=== PATIENT | female | born 1960 | race Caucasian/White ===

== ENCOUNTER 2016-12-17 14:36 | Observation (INO) | payer BC ==
[2016-12-17] MEDS ORDERED: NALOXONE HCL 1 MG/1 ML SYRG ONE (14:46)
[2016-12-17 14:49] LABS: Hematocrit 40.5 % (37.0-47.0); Hemoglobin 13.5 gm/dL (12.5-16.0); Mean Cell Volume 84.6 fl (78-100); Mean Corpuscular Hemoglobin 28.2 pg (27-31); Mean Corpuscular Hgb Conc 33.3 g/dl (32-36); Mean Platelet Volume 11.1 fl (6.0-9.5); Neutrophil # 7.1 K/mm3 (1.3-6.0); Neutrophil % 66.9 % (42-75.0); Platelet Count 290 K/mm3 (150-450); Red Blood Count 4.79 M/mm3 (4.2-5.4); Red Cell Distribution Width 12.4 % (11.5-14.0); White Blood Count 10.6 K/mm3 (4.0-10.5)
[2016-12-17] MEDS ORDERED: NALOXONE HCL 1 MG/1 ML SYRG IV ONE (14:49)
[2016-12-17 15:00] LABS: Cocaine Ur Negative (NEGATIVE); Urine Barbiturate Negative (NEGATIVE); Urine Benzodiazepines Negative (NEGATIVE); Urine Opiates Negative (NEGATIVE); Urine PCP Negative (NEGATIVE)
[2016-12-17 15:05] LABS: Urine Appearance Clear; Urine Bilirubin Negative (NEGATIVE); Urine Color Yellow; Urine Ketone 5 mg/dL (NEGATIVE)
[2016-12-17 15:06] LABS: Urine Blood 10 /ul (NEGATIVE); Urine Nitrite Negative (NEGATIVE); Urine Protein 100 mg/dL (NEGATIVE); Urine RBC 0-5 /hpf (0-5); Urine Urobilinogen Normal (NORMAL); Urine WBC 0-5 /hpf (0-5); Urine pH 8.5 pH (5.0-7.0)
[2016-12-17 15:06] LABS: ALT 20 U/L (19-67); AST 17 U/L (0-48); Albumin * 4.1 gm/dl (3.4-5.0); Alkaline Phosphatase * 84 U/L (50-170); BUN/Creatinine Ratio 17.4 (9.0-21.6); Bilirubin, Total 0.5 mg/dL (0.0-1.1); Blood Urea Nitrogen 15 mg/dL (3-23); Ca. Corrected For Albumin 9.6 mg/dL (8.4-10.2); Carbon Dioxide 28.9 mmol/L (24-32.6); Chloride 102 mmol/L (97-106); Glucose * 140 mg/dL (70-110); Potassium 2.9 mmol/L (3.4-4.6); Sodium 142 mmol/L (132-142); Total Protein 7.7 gm/dL (6.2-8.2); Troponin I Less than 0.017 ng/ml (0.00-0.10)
[2016-12-17 15:07] LABS: Urine Bacteria None Seen
--- NOTE | 2016-12-17 15:12 | ERNOTE ---
Neuro HPI ER Record Presenting Symptoms: other Time Seen by Provider: 12/17/16 14:36 Source: patient, family Exam Limitations: no limitations Allergies/Adverse Reactions: Allergies Allergy/AdvReac Type Severity Reaction Status Date / Time Penicillins Allergy Intermediate Swelling Unverified 03/30/14 16:32 (Other) Tetracyclines Allergy Intermediate Swelling Unverified 03/30/14 16:32 (Other) Home Medications: HOME MEDICATIONS Levothyroxine Sodium [Synthroid] 75 mcg PO DAILY 03/30/14 [Last Taken Unknown] Naproxen Sodium [Aleve] 220 mg PO DAILY PRN 03/30/14 [Last Taken Unknown] Albuterol Sulfate [Proair Hfa] 1 - 2 puff IH Q4H PRN 12/17/16 [Last Taken Unknown] Loratadine [Claritin] 10 mg PO DAILY 12/17/16 [Last Taken Unknown] diphenhydrAMINE HCL [Benadryl] 25 mg PO Q6H PRN 12/17/16 [Last Taken Unknown] - History of Present Illness Narrative: Patient is brought in by her daughter as she is not acting right. She talked to the patient around 10:00 and patient seemed to be normal at that time. Patients called the daughter around 12:00 as the patient was very dizzy, nauseated and generalized weak. The daughter got there around 13:00, was able to get the patient in her car. On the way to the hospital the patient vomited once, complained about dizziness and then became limp, but not unresponsive. Patient offered vry little assistance on transferring her from the car to the wheelchair to a bed. States 'I don't feel good' but cannot specify what bothers her. When asked about past history states that she has knee pain, took some medication that she got from her dentist three months ago. Date (Duration): 12/17/16 Time (Timing): 12:00 Review of Systems - Narrative Narrative: limited by patient condition - Review of Systems Constitutional: Absent: recent illness Respiratory: Absent: shortness of breath Gastrointestinal/Abdominal: Present: nausea. Absent: abdominal pain Neurological: Present: dizziness/light-headedness - Patient's Past Medical History Patient History - Medical: Arthritis, Hypothyroidism, Obesity Patient History - Cardiac/Respiratory: No pertinent hx Patient History - Cancer: No Hx of Cancer Patient History - Surgical Procedures: Back Surgery, Hysterectomy LMP (females 10-50): Menopausal - Social History Living Situations: home Physical Exam - Physical Exam General Appearance: Present: wd/wn, no apparent distress, anxious, obese, other - patient staring, answers some questions appropiately, follows some commands with very little effort Eye Exam: Normal inspection: bilateral, PERRL: bilateral, EOMI: bilateral Ears, Nose, Throat: Present: normal ENT inspection, normal pharynx Neck: Present: nontender Respiratory: Present: no respiratory distress, normal breath sounds, no accessory muscle use, lungs clear Cardiovascular/Chest: Present: regular rate, rhythm, no murmur Gastrointestinal/Abdominal: Present: nontender, nondistended, soft Neurological Exam: Present: other - patient knows name, can't say birthdate, knows location, states [place] Coma Scale - Assess Eye Opening: To Voice Motor: Obeys Commands Verbal: Confused - Total Coma Scale Total: 13 ED Progress - Results and Orders Patient's Lab Results:: I have reviewed the patient's lab results. - Vital Signs Patient's Vital Signs:: I have reviewed the patient's vital signs. - CT/Ultrasound CT/Ultrasound Narrative: CT head: no acute changes - Progress/Reassessment Progress Note-Subjective: 12/17/16 15:09 no change with narcan 12/17/16 16:01 patient more alert, feels nauseated when holding still, dizziness with minimal head movement or elevation patient alert and cooperative now, following all commands, explosive ordnance specialist equal, no drift with hands or legs, finger-nose normal, discussed results with patient and family, denies any use of THC, a couple of weeks ago was at a alliance party 'and someone might have smoked something' 12/17/16 16:22 nausea better after zofran, still very dizzy 12/17/16 17:17 patient comfortable at rest, but with minimal elevation of head dizziness recurs , per patient and family patient had nausea dizziness after one of her surgeries ( neck or back) symptoms were relieved with oxygen and benadryl, patient O2 sats ate 99-100% on RA, will try benadryl, patient insists on having minimal head elevation reversed patient admitted using THC on a daily basis to nursing staff 12/17/16 18:40 patient feeling better at rest (no nausea, tolerated po), but still gets dizzy with sitting her up more 12/17/16 19:46 patient feeling better at rest, able to sit up in bed but when trying to sit on side of bed is getting severely dizzy and nauseated again. symptoms do not resolved till patients sits back in bed 12/17/16 19:46 discussed with Ekaterina Velez, natalioay to admit for observation and order MRI in the am Departure Clinical Impression: Vertigo - Departure Disposition: [facility] Condition: Good
[2016-12-17 15:13] LABS: Urine THC Positive (NEGATIVE)
[2016-12-17] MEDS ORDERED: POTASSIUM CHLORIDE 100 ML IV ONE (15:15)
[2016-12-17] MEDS ORDERED: NORMAL SALINE 1,000 ML IV ONE (15:15)
[2016-12-17 15:16] LABS: Cocaine Ur Negative (NEGATIVE); Urine Barbiturate Negative (NEGATIVE); Urine Benzodiazepines Negative (NEGATIVE); Urine Opiates Negative (NEGATIVE); Urine PCP Negative (NEGATIVE); Urine THC Positive (NEGATIVE)
[2016-12-17] MEDS ORDERED: ONDANSETRON HCL/PF 2 MG/ML VIAL IV ONE (16:00)
[2016-12-17] MEDS ORDERED: ONDANSETRON HCL/PF 2 MG/ML VIAL ONE (16:03)
[2016-12-17] MEDS ORDERED: LORazepam 2 MG/ML DISP.SYRIN IV ONE (16:22)
[2016-12-17] MEDS ORDERED: LORazepam 2 MG/ML DISP.SYRIN ONE (16:25)
[2016-12-17] MEDS ORDERED: diphenhydrAMINE HCL 50 MG/ML VIAL IV ONE (17:16)
[2016-12-17] MEDS ORDERED: diphenhydrAMINE HCL 50 MG/ML VIAL ONE (17:18)
[2016-12-17] MEDS ORDERED: MECLIZINE HCL 25 MG TABLET PO ONE (18:45)
[2016-12-17] MEDS ORDERED: MECLIZINE HCL 25 MG TABLET ONE (18:53)
[2016-12-17] MEDS ORDERED: POTASSIUM CHLORIDE 20 MEQ TABLET.SA PO ONE ×2 (20:46→22:30)
--- NOTE | 2016-12-17 20:59 | HP ---
Addendum entered and electronically signed by Ekaterina Velez ARNP 12/18/16 06: 48: diagnosis below should say hypokalemia NOT hyperkalemia. yanci Original Note: Chief Complaint - Chief Complaint Date of Service: 12/17/16 Time of Service: 20:59 Chief Complaint: intractable vertigo History of Present Illness: Kyra is a 56 year old female with a PMH of hypothyroidism who presented the ER with severe weakness, dizziness, nausea and vomiting x1. ER eval revealed unremarkable CBC and CMP with the exception of low K+ at 2.9. UDS +THC - admits to smoking THC daily. States she took a "left over" pain pill, one tab once a day on Sunday and Sunday for knee pain. c/o ongoing headache, moderate to severe in intensity. states she may felt left sided weakness prior to coming into the ER. Benadryl, meclazine, ativan and narcan given in the ER without success of resolving pt's vertigo. patient states she has had episodes similar to this in the past after surgery that resolved with benadryl and oxygen administration. patient to be admitted for intractable vertigo and further workup. - Patient's Past Medical History Patient History - Medical: Arthritis, Hypothyroidism, Obesity Patient History - Cardiac/Respiratory: No pertinent hx Patient History - Cancer: No Hx of Cancer Patient History - Surgical Procedures: Back Surgery, Hysterectomy Patient History - Other: None LMP (females 10-50): Menopausal - Family History Mother Family History - Medical: Diabetes Type 2 Family History - Cardiac/Respiratory: CVA/Stroke, Hypertension, Myocardial Infarction - Social History Living Situations: home Psych History: No pertinent hx Smoking Status: Former smoker Have you smoked in the past 12 months: No Alcohol Use: none Drug Use: marijuana - Immunizations Immunizations Up to Date: Yes Hx Pneumococcal Vaccination: No History of Influenza Vaccine: No Review Of Systems (GEN) - Review of Systems Generalized/Overall Review: Present: Fatigue. Absent: Chills, Fever EENTM: Present: No Symptoms Reported Respiratory: Present: No Symptoms Reported Cardiac: Present: No Symptoms Reported Abdominal: Present: Nausea, Vomiting. Absent: Hematemesis, Abdominal Pain, Constipation, Diarrhea, Melena, Bright blood from rectum Genitourinary: Present: No Symptoms Reported Musculoskeletal: Present: No Symptoms Reported Neurological: Present: Headache, Tingling, Weakness. Absent: Seizure, Tremors Skin: Present: No Symptoms Reported Endocrine: Present: No Symptoms Reported Misc: All systems neg except as marked Allergies/Adverse Reactions: Allergies Allergy/AdvReac Type Severity Reaction Status Date / Time Penicillins Allergy Intermediate Swelling Unverified 03/30/14 16:32 (Other) Tetracyclines Allergy Intermediate Swelling Unverified 03/30/14 16:32 (Other) Home Medications: HOME MEDICATIONS Levothyroxine Sodium [Synthroid] 75 mcg PO DAILY 03/30/14 [Last Taken 12/17/16] Naproxen Sodium [Aleve] 220 mg PO DAILY PRN 03/30/14 [Last Taken Unknown] Albuterol Sulfate [Proair Hfa] 1 - 2 puff IH Q4H PRN 12/17/16 [Last Taken Unknown] Loratadine [Claritin] 10 mg PO DAILY 12/17/16 [Last Taken Unknown] diphenhydrAMINE HCL [Benadryl] 25 mg PO Q6H PRN 12/17/16 [Last Taken Unknown] Exam - Exam Vital Signs: Vital Signs - Last Taken Temp 36.1 C L 12/17/16 19:54 Pulse 71 12/17/16 20:15 Resp 18 12/17/16 20:15 BP 147/90 12/17/16 20:15 Pulse Ox 99 12/17/16 20:15 Constitutional: Present: Alert, Oriented x3, Cooperative, Other - anxious, Obese ENT Exam: Present: normal ENT inspection Eye Exam: bilateral eye: normal inspection, PERRL, EOMI, other - no nystagmus noted Neck: Present: full range of motion, supple Breasts: Present: Exam deferred Respiratory: Present: chest non-tender, lungs clear, normal breath sounds, no respiratory distress, no accessory muscle use Cardiovascular/Chest: Present: normal peripheral pulses, regular rate, rhythm, no chest tenderness, no JVD Peripheral Pulses: dorsalis-pedis (R): 2+, dorsalis-pedis (L): 2+, radial (R): 2 +, radial (L): 2+ Abdomen: Present: soft, nontender, nondistended /Rectal: Present: Exam deferred Extremity: Present: non-tender, normal inspection, no pedal edema Skin Exam: Present: normal color, warm/dry, no cyanosis 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 Absent: aphasia, facial droop, motor weakness, sensory deficit Diagnostic Studies: Laboratory Results WBC 10.6 K/mm3 (4.0-10.5) H 12/17/16 14:41 RBC 4.79 M/mm3 (4.2-5.4) 12/17/16 14:41 Hgb 13.5 gm/dL (12.5-16.0) 12/17/16 14:41 Hct 40.5 % (37.0-47.0) 12/17/16 14:41 MCV 84.6 fl (78-100) 12/17/16 14:41 MCH 28.2 pg (27-31) 12/17/16 14:41 MCHC 33.3 g/dl (32-36) 12/17/16 14:41 RDW 12.4 % (11.5-14.0) 12/17/16 14:41 Plt Count 290 K/mm3 (150-450) 12/17/16 14:41 MPV 11.1 fl (6.0-9.5) H 12/17/16 14:41 Immature Gran % (Auto) 0.50 % (0.001-0.429) H 12/17/16 14:41 Immature Gran # (Auto) 0.05 K/mm3 (0.000-0.0310) H 12/17/16 14:41 Neutrophils % 66.9 % (42-75.0) 12/17/16 14:41 Lymphocytes % 26.8 % (20-51) 12/17/16 14:41 Monocytes % 4.6 % (0.0-9) 12/17/16 14:41 Eosinophils % 0.8 % (0.0-3.0) 12/17/16 14:41 Basophils % 0.4 % (0.0-1.0) 12/17/16 14:41 Nucleated RBC % 0.0 k/mm3 (0-1) 12/17/16 14:41 Neutrophils # 7.1 K/mm3 (1.3-6.0) H 12/17/16 14:41 Lymphocytes # 2.8 k/mm3 (1.5-3.5) 12/17/16 14:41 Monocytes # 0.5 k/mm3 (0.0-1.0) 12/17/16 14:41 Eosinophils # 0.1 k/mm3 (0.0-0.7) 12/17/16 14:41 Absolute Basophils 0.0 k/mm3 (0.0-0.1) 12/17/16 14:41 Sodium 142 mmol/L (132-142) 12/17/16 14:41 Plasma Sodium 143 mmol/L (130-142) H 12/17/16 14:41 Potassium 2.9 mmol/L (3.4-4.6) L 12/17/16 14:41 Chloride 102 mmol/L (97-106) 12/17/16 14:41 Carbon Dioxide 28.9 mmol/L (24-32.6) 12/17/16 14:41 Anion Gap 14.0 mmol/L (6.8-13.8) H 12/17/16 14:41 BUN 15 mg/dL (3-23) 12/17/16 14:41 Creatinine 0.86 mg/dL (0.4-1.4) 12/17/16 14:41 Est GFR (Non-Af Amer) 72 mL/min (60-130) 12/17/16 14:41 BUN/Creatinine Ratio 17.4 (9.0-21.6) 12/17/16 14:41 Random Glucose 140 mg/dL (70-110) H 12/17/16 14:41 Calcium 10.0 mg/dL (7.9-10.9) 12/17/16 14:41 Calcium Adj for Albumin 9.6 mg/dL (8.4-10.2) 12/17/16 14:41 Total Bilirubin 0.5 mg/dL (0.0-1.1) 12/17/16 14:41 AST 17 U/L (0-48) 12/17/16 14:41 ALT 20 U/L (19-67) 12/17/16 14:41 Alkaline Phosphatase 84 U/L (50-170) 12/17/16 14:41 Troponin I Less than 0.017 ng/ml (0.00-0.10) 12/17/16 14:41 Total Protein 7.7 gm/dL (6.2-8.2) 12/17/16 14:41 Albumin 4.1 gm/dl (3.4-5.0) 12/17/16 14:41 Urine Color Yellow 12/17/16 14:49 Urine Appearance Clear 12/17/16 14:49 Urine pH 8.5 pH (5.0-7.0) 12/17/16 14:49 Ur Specific [place] 1.020 SP.GR. (1.005-1.010) 12/17/16 14:49 Urine Protein 100 mg/dL (NEGATIVE) H 12/17/16 14:49 Urine Glucose (UA) Negative mg/dL (NEGATIVE) 12/17/16 14:49 Urine Ketones 5 mg/dL (NEGATIVE) 12/17/16 14:49 Urine Blood 10 /ul (NEGATIVE) H 12/17/16 14:49 Urine Nitrate Negative (NEGATIVE) 12/17/16 14:49 Urine Bilirubin Negative mg/dl (NEGATIVE) 12/17/16 14:49 Prot Sulfosalicylic Acd 4+ mg/dL (0) H 12/17/16 14:49 Urine Urobilinogen Normal EU/dl (NORMAL) 12/17/16 14:49 Ur Leukocyte Esterase Negative /ul (NEGATIVE) 12/17/16 14:49 Urine RBC 0-5 /hpf (0-5) 12/17/16 14:49 Urine WBC 0-5 /hpf (0-5) 12/17/16 14:49 Ur Epithelial Cells 0-5 /hpf (0-5) 12/17/16 14:49 Urine Bacteria None seen (NONE) 12/17/16 14:49 Urine Culture Comments No culture indicated 12/17/16 14:49 Urine Opiates Screen Negative (NEGATIVE) 12/17/16 14:49 Barbiturate Screen Negative (NEGATIVE) 12/17/16 14:49 Ur Phencyclidine Scrn Negative (NEGATIVE) 12/17/16 14:49 Urine Amphetamine Negative (NEGATIVE) 12/17/16 14:49 U Benzodiazepines Scrn Negative (NEGATIVE) 12/17/16 14:49 Urine Cocaine Screen Negative (NEGATIVE) 12/17/16 14:49 Urine Marijuana (THC) Positive (NEGATIVE) H 12/17/16 14:49 Assessment/Plan - Narrative Narrative: Vertigo, intractable - ? due to true vertigo vs TIA vs migraine - no nystagmus, ENT exam WNL - has mod-severe headache, light sensitive - did c/o left sided weakness prior to ER with numbness - CT of head non acute - ERP would like to do MRI in am. will observe overnight and reassess in am. - monitor on tele - vital signs q 4 hours - check orthostatic blood pressures - check TSH given history hypothyroidism - patient states prior episodes like this have resolved with benadryl and oxygen administration. - benadryl ordered prn. O2 at 2L overnight for pt comfort (no COPD hx) - iv fluids overnight - pt states busy with grandkids for past day, not best water intake. hypothyroidism - check tsh - cont home medication hypokalemia - replace with oral KCl. - recheck labs in am. Code status: full code VTE: lovenox GI proph: protonix. - Assessment/Plan (1) Vertigo Problem: Acute (2) Hyperkalemia Problem: Acute (3) Hypothyroidism Problem: Chronic Qualifiers: Hypothyroidism type: acquired Qualified Code(s): E03.9 - Hypothyroidism, unspecified (4) Illicit drug use Problem: Chronic
[2016-12-17] MEDS ORDERED: ENOXAPARIN SODIUM 40 MG/0.4 ML SYRG SC SCH (21:30)
[2016-12-17] MEDS ORDERED: diphenhydrAMINE HCL 50 MG/ML VIAL IV PRN (21:57)
[2016-12-17] MEDS ORDERED: NAPROXEN SODIUM 220 MG TABLET PO PRN (21:59)
[2016-12-17] MEDS ORDERED: ONDANSETRON HCL/PF 2 MG/ML VIAL IV PRN (21:59)
[2016-12-17] MEDS ORDERED: METOCLOPRAMIDE HCL 5 MG/ML VIAL IV PRN (21:59)
[2016-12-17] MEDS: NORMAL SALINE 1,000 ML IV PRN (23:39)
[2016-12-18] MEDS: NORMAL SALINE 1,000 ML IV PRN (06:50)
[2016-12-18] MEDS ORDERED: LEVOTHYROXINE SODIUM 75 MCG TABLET PO SCH (07:00)
[2016-12-18] MEDS ORDERED: POTASSIUM CHLORIDE 20 MEQ TABLET.SA PO ONE ×2 (08:00)
[2016-12-18] MEDS ORDERED: LORATADINE 10 MG TABLET PO SCH (09:00)
[2016-12-18] MEDS ORDERED: METOCLOPRAMIDE HCL 5 MG/ML VIAL IV PRN (09:12)
[2016-12-18 11:30] LABS: Albumin * 3.4 gm/dl (3.4-5.0); Anion Gap 10.2 mmol/L (6.8-13.8); BUN/Creatinine Ratio 12.8 (9.0-21.6); Bilirubin, Total 0.4 mg/dL (0.0-1.1); Calcium * 8.8 mg/dL (7.9-10.9); Carbon Dioxide 29.5 mmol/L (24-32.6); Potassium 4.7 mmol/L (3.4-4.6); Total Protein 6.7 gm/dL (6.2-8.2)
--- NOTE | 2016-12-18 14:24 | DS ---
(1) Nausea with vomiting, unspecified Problem: Acute (2) Dizziness, nonspecific Problem: Acute (3) Hypokalemia Diagnosis(s): due to vomiting Problem: Acute (4) Hypothyroidism Problem: Chronic Qualifiers: Hypothyroidism type: unspecified Qualified Code(s): E03.9 - Hypothyroidism , unspecified (5) Obesity Diagnosis(s): BMI-35.0 Problem: Chronic Qualifiers: Obesity severity: unspecified obesity severity (6) Illicit drug use Diagnosis(s): Urine positive for THC. Problem: Chronic Description of Stay: DATE OF ADMISSION: 12/17/2016. DATE OF DISCHARGE: 12/18/2016. DIAGNOSTICS: CT OF HEAD W/O 12/17/2016. No acute intracranial abnormality identified. DISCHARGE SUMMARY: Kyra Singer is a 56- yr old F with a H/O hypothyroidism, OA, obesity[BMI 35.0] , neck and back surgeries who came into the ER for evaluation of dizziness, nausea, several episodes of vomiting. Significant findings K+ 2.9, urine positive THC. CT of head negative. Patient stated she had a mild headache with light sensitivity and possible weakness. No prior history of migraines. Had a similar episode in the past which improved with Benadryl and O2. Patient given diphenhydramine IV, metoclopramide IV, Narcan IV in ER w/o improvement. Patient started on IV fluids and potassium replacement. Evaluated by PT who did not feel there was a vestibular component. ENT exam WNL. Patient improved by the next day. Discharged in a stable condition. Patient advised to see ENT/ neurology if S/S return or persist. Procedures Performed: none Discharge Disposition: Home self care Disposition: Home self-care Condition: Undetermined Discharge Activity: Activity as tolerated Discharge Diet: Low salt, Low fat/chol Problem Oriented Discharge Instructions to Patient/Family: Vertigo, Easy-to- Read Additional Patient Instructions (free text): Appt with PCP in 1-2 weeks. Follow up with Dr. Christina 01/02 at 10:45. If S/S worsen, may require ENT/ neurology referral.. Complete Home Medications List: Complete Home Medication List: Levothyroxine Sodium [Synthroid] 75 mcg PO DAILY 03/30/14 Naproxen Sodium [Aleve] 220 mg PO DAILY PRN 03/30/14 Albuterol Sulfate [Proair Hfa] 1 - 2 puff IH Q4H PRN 12/17/16 Loratadine [Claritin] 10 mg PO DAILY 12/17/16 diphenhydrAMINE HCL [Benadryl] 25 mg PO Q6H PRN 12/17/16
[2016-12-18 14:35] VITALS: BP 151/84
== END 2016-12-18 15:15 | disposition home or self-care (01) ==
LOC: ER 14:36 → MS 19:53
PROVIDERS: ADMIT Nurse Practitioner Critical Care Medicine; ATTEND Internal Medicine
DX: R42 Dizziness and giddiness (principal); R11.2 Nausea with vomiting, unspecified; E87.6 Hypokalemia; E03.9 Hypothyroidism, unspecified; E66.9 Obesity, unspecified; Z68.35 Body mass index [BMI] 35.0-35.9, adult; F12.20 Cannabis dependence, uncomplicated
CPT/HCPCS: 36415; 70450; 80053; 80307; 81001; 84443; 84484; 85025; 96365; 96372; 96375; 97162; 97165; 99284; G0378; J2405